=== PATIENT | female | born 1945 | race Caucasian/White ===

== ENCOUNTER → 2020-09-17 | Outpatient (CLI) | payer OTHER, MEDICARE ==
[~2020-09-17] MED LIST: ADULT LOW DOSE81 MG PO; AMARYL4 MG PO; ATORVASTATIN CA40 MG PO; AZITHROMYCIN 2250 MG PO; BENICAR40 MG PO; BETIMOL 0.0.25 %/11 OP; CARDIZEM; CARDIZEM CD120 MG PO; CLARITIN10 MG PO; DILTIAZEM 24HR300 M2 PO; ESTRACE; FLONASE; FLONASE 0.05%50 MCG NASAL; GLUCOPHAGE1000 MG PO; JANUVIA100 MG PO; LOSARTAN POTAS100 MG PO; MECLIZINE 25 MG25 M1 PO; MOBIC15 MG PO; NITROGLYCERIN0.4 MG SL; PROTONIX40 M2 PO; SIMVASTATIN40 MG PO; SKELAXIN 800 M800 M1 PO; TESSALON PERLE100 MG PO; TIMOLOL GL0.5 %/5 M1 OP; TRAVATAN Z5 ML OP; ULTRAM 50MG TAB50 MG PO; ZYRTEC10 M2 PO
== END ==
LOC: SJCVC 10:38
PROVIDERS: ATTEND Internal Medicine
DX: R94.31 Abnormal electrocardiogram [ECG] [EKG] (principal); I25.10 Atherosclerotic heart disease of native coronary artery without angina pectoris; I11.0 Hypertensive heart disease with heart failure; I50.32 Chronic diastolic (congestive) heart failure; E11.39 Type 2 diabetes mellitus with other diabetic ophthalmic complication; E78.5 Hyperlipidemia, unspecified; K21.9 Gastro-esophageal reflux disease without esophagitis; H42 Glaucoma in diseases classified elsewhere; Z79.4 Long term (current) use of insulin; Z79.899 Other long term (current) drug therapy; Z79.82 Long term (current) use of aspirin; Z87.891 Personal history of nicotine dependence

== ENCOUNTER → 2021-03-20 | Outpatient (CLI) | payer OTHER, MEDICARE | LOC: SJCVC 13:23 | PROVIDERS: ATTEND Internal Medicine | DX: R94.31 Abnormal electrocardiogram [ECG] [EKG] (principal); I25.10 Atherosclerotic heart disease of native coronary artery without angina pectoris; I11.0 Hypertensive heart disease with heart failure; I50.32 Chronic diastolic (congestive) heart failure; E78.5 Hyperlipidemia, unspecified; E11.9 Type 2 diabetes mellitus without complications; K21.9 Gastro-esophageal reflux disease without esophagitis; Z87.891 Personal history of nicotine dependence; Z79.82 Long term (current) use of aspirin; Z79.4 Long term (current) use of insulin; Z79.899 Other long term (current) drug therapy; Z88.1 Allergy status to other antibiotic agents; Z88.8 Allergy status to other drugs, medicaments and biological substances; Z82.49 Family history of ischemic heart disease and other diseases of the circulatory system ==